=== PATIENT | female | born 1975 | race Hispanic/Latino ===

== ENCOUNTER 2017-05-28 19:03 | Emergency (ER) | payer OTHER, SELFPAY ==
[~2017-05-28 19:03] MED LIST: ISOVUE-370 76%-LOCM 1 ML ONE
[2017-05-28 19:45] LABS: Bilirubin Negative (Negative); Blood, Urine Negative (Negative); Glucose, Urine (Dipstick) Negative (Negative); Ketone, Urine Negative (Negative); Nitrite Negative (Negative); Protein, Urine (Dipstick) Negative (Neg-Trace)
[2017-05-28 19:47] LABS: Bacteria/HPF Rare-Few HPF (None Seen); WBC/HPF 0-3 HPF (0-3)
[2017-05-28 20:09] LABS: Hyaline Casts/LPF 0-3 HYALINE CAST LPF (0-3 Hyaline); RBC/HPF 0-3 HPF (0-3)
[2017-05-28 20:10] LABS: Yeast-All Forms None Seen HPF (None Seen)
[2017-05-28 20:31] LABS: #Basophils 0.1 thou/uL (0.0-0.2); #Eosinphils 0.3 thou/uL (0.0-0.7); #Lymphocytes 4.6 thou/uL (1.20-3.40); #Monocytes 0.7 thou/uL (0.11-0.59); #Neutrophils 5.6 thou/uL (1.40-6.50); %Eosinophils 2.7 % (0.0-10.0); %Lymphocytes 40.3 % (21.0-51.0); %Monocytes 6.5 % (0.0-10.0); Hematocrit 30.3 % (36.0-47.0); Mean Platelet Volume 7.8 fL (7.4-10.4); Red Blood Cell (RBC) Count 4.05 mill/uL (4.20-5.40); White Blood Cell (WBC) Count 11.4 thou/uL (4.8-10.8)
[2017-05-28 20:48] LABS: ALT (SGPT) 7 U/L (8-55); AST (SGOT) 13 U/L (5-34); Alkaline Phosphatase 62 U/L (40-150); Anion Gap 8 mmol/L (10-20); BUN (Urea Nitrogen) 11 mg/dL (7.0-18.7); Bilirubin, Total 0.2 mg/dL (0.2-1.2); Calc. Creatinine Clearance 0 mL/min (70-130); Calcium 8.6 mg/dL (7.8-10.44); Carbon Dioxide 25 mmol/L (22-29); Chloride 107 mmol/L (98-107); Estimated GFR-MDRD Greater than 90; Globulin 3.5 g/dL (2.4-3.5); Protein, Total 7.1 g/dL (6.0-8.3)
[2017-05-28 20:52] LABS: Microcytosis SLIGHT = 6-15 cells (100X) (0-5/hpf)
[2017-05-28] MEDS ORDERED: traMADol HCl 50 MG TAB ONE (22:35)
--- NOTE | 2017-05-29 00:04 | CT ---
CT ABDOMEN AND PELVIS WITH IV CONTRAST: Date: 05-28-17 History: Fatigue and lethargy. Two menstrual cycles per month. Decreased appetite, abdominal pain wh ich started recently. Comparison: 04-22-12 FINDINGS: Post cholecystectomy changes are again seen. A few subcentimeter pleural based nodular densities are seen at each lung base. The liver, spleen, pancreas, bilateral adrenal glands, kidneys, abdominal aorta and urinary bladder demonstrate a normal CT appearance. There is low density mass in the posterior aspect of the uterine fundus which could potentially repr esent a necrotic uterine fibroid. This is larger in size compared to prior study in 2012. This hypod ense mass like structure on today's exam measures 3 cm craniocaudal x 4.9 cm transverse x 3.1 cm AP. Previous maximal dimension study on study in 2012 was 1.5 cm. This does result in mild mass effect on the superior aspect of the urinary bladder. Urinary bladder is decompressed. There is a hypodense structure in the right adnexa which may represent either a bilobed ovarian cyst measuring 2.5 cm or possibly representing two closely adjacent dominant follicles. Left adnexal str uctures have a normal appearance. The appendix is normal in caliber. No other interval change. IMPRESSION: 1. Heterogeneous and hypodense lesion at the posterior aspect of the uterine fundus which may repres ent a necrotic uterine fibroid. This is larger in size when compared to a study in 2012. Nonemergent pelvic ultrasound is suggested for further evaluation. 2. Findings likely related to closely adjacent dominant follicles within the right ovary as opposed to bilobed right ovarian cyst. 3. No CT evidence of appendicitis. 4. Cholecystectomy. POS: ROBERT
== END 2017-05-29 00:17 | disposition home or self-care (01) ==
LOC: ERS 19:03
DX: D25.9 Leiomyoma of uterus, unspecified (principal); D64.9 Anemia, unspecified; J45.909 Unspecified asthma, uncomplicated; F17.210 Nicotine dependence, cigarettes, uncomplicated
CPT/HCPCS: 36415; 74177; 80053; 81003; 81015; 81025; 85025; 87480; 87491; 87510; 87591; 87660

== ENCOUNTER 2018-10-03 16:39 | Emergency (ER) | payer OTHER, SELFPAY ==
[2018-10-03 17:15] LABS: #Basophils 0.1 thou/uL (0.0-0.2); #Eosinphils 0.1 thou/uL (0.0-0.7); #Lymphocytes 2.7 thou/uL (1.20-3.40); #Monocytes 1.4 thou/uL (0.11-0.59); #Neutrophils 9.6 thou/uL (1.40-6.50); %Basophils 0.6 % (0.0-1.0); %Eosinophils 0.9 % (0.0-10.0); %Lymphocytes 19.5 % (21.0-51.0); Hemoglobin 11.9 g/dL (12.0-16.0); Mean Corpuscular HGB CONC 31.8 g/dL (32.0-36.0); Mean Corpuscular Hemoglobin 28.5 pg (27.0-31.0); Mean Corpuscular Volume 89.8 fL (78.0-98.0); Mean Platelet Volume 6.9 fL (7.4-10.4); Platelet Count 338 thou/uL (130-400); RBC Distribution Width 14.8 % (11.5-14.5); Red Blood Cell (RBC) Count 4.16 mill/uL (4.20-5.40); White Blood Cell (WBC) Count 13.9 thou/uL (4.8-10.8)
[2018-10-03 17:38] LABS: ALT (SGPT) 8 U/L (8-55); AST (SGOT) 14 U/L (5-34); Albumin 3.8 g/dL (3.5-5.0); Alkaline Phosphatase 94 U/L (40-150); Anion Gap 12 mmol/L (10-20); BUN (Urea Nitrogen) 12 mg/dL (7.0-18.7); Bilirubin, Total 0.4 mg/dL (0.2-1.2); Calc. Creatinine Clearance 0 mL/min (70-130); Carbon Dioxide 24 mmol/L (22-29); Chloride 107 mmol/L (98-107); Estimated GFR-MDRD Greater than 90; Globulin 3.6 g/dL (2.4-3.5); Glucose 99 mg/dL (70-105); Potassium 3.8 mmol/L (3.5-5.1); Protein, Total 7.4 g/dL (6.0-8.3); Sodium 139 mmol/L (136-145)
[2018-10-03 18:25] LABS: BHCG - Serum Negative (NEGATIVE); Pregs Control Background? CLEAR/WHITE (CLR/WHITE); Pregs Control Bar Appear? YES (CONTROL BAR)
[2018-10-03] MEDS ORDERED: Dexamethasone 10 MG/ML VIAL ONE (18:25)
[2018-10-03] MEDS ORDERED: Fentanyl 100 MCG/2 ML VIAL ONE (18:25)
[2018-10-03] MEDS ORDERED: Clindamycin/D5W 900 mg/50 ml Premix Bag ONE (18:25)
[2018-10-03] MEDS ORDERED: Ketorolac Tromethamine 30 MG/ML VIAL ONE (18:25)
[2018-10-03] MEDS ORDERED: Ondansetron PF 4 MG/2 ML Vial ONE (18:35)
--- NOTE | 2018-10-03 20:10 | CT ---
CT OF NECK PERFORMED WITH INTRAVENOUS CONTRAST ENHANCEMENT: History: Neck pain. Respiratory distress. Evaluation for retropharyngeal versus peritonsillar abscess . FINDINGS: The visualized brain parenchyma is unremarkable. Thyroid gland is somewhat enlarged. The lung apices are clear. Vocal cord region appears unremarkable. There is pronounced bilateral jugular chain adenopathy, prominent nodes particularly enlarged. Bilate ral symmetric jugular chain nodes. Given the asymmetry of this, this is probably reactive in nature. There is prominence to the tonsillar ring. Enlargement of the lingular tonsils and tonsillar pillar r egions with narrowing to the airway associated with this. No retropharyngeal abscess is appreciated. Soft tissue changes extend into the vallecular region related to the tonsillar enlargement. There is some low attenuation change associated at the right tonsillar region which is probably related to eit her crypt or possibly developing abscess. Parapharyngeal spaces appear clear. Parotid and submandibular gland regions are unremarkable. IMPRESSION: 1. Markedly enlarged tonsillar ring with enlarged lingual tonsils and tonsillar pillars. On the right side there is some low attenuation change associated with the right tonsil that could represent cryp t formation or possibly developing abscess. There is associated narrowing to the airway. Epiglottis d oes not appear involved. There is marked bilateral jugular chain adenopathy which is probably related to reactive change. 2. Incidental note is made of an enlarged thyroid gland. POS: ROBERT
== END 2018-10-03 21:55 | disposition home or self-care (01) ==
LOC: ERS 16:39
DX: J03.90 Acute tonsillitis, unspecified (principal); E86.0 Dehydration; F41.9 Anxiety disorder, unspecified; F32.9 Major depressive disorder, single episode, unspecified; J45.909 Unspecified asthma, uncomplicated; Z79.1 Long term (current) use of non-steroidal anti-inflammatories (NSAID); Z87.891 Personal history of nicotine dependence
CPT/HCPCS: 36415; 70491; 80053; 84703; 85025; 96365; 96366; 96375; J1100; J1885; J2405; J3010; J3490; Q9966